=== PATIENT | male | born 1960 | race Caucasian/White ===

== ENCOUNTER 2019-05-20 09:28 | Observation (INO) | payer SELFPAY ==
[~2019-05-20] VITALS: Wt 78.3 kg
[2019-05-20 09:57] LABS: BASO % 0.5 % (0.0-2.0); GRAN # 5.8 (1.4-6.5); GRAN % 67.5 % (42.2-75.2); HEMATOCRIT 44.9 % (42.0-52.0); HEMOGLOBIN 15.4 g/dl (13.5-18.0); LYMPH % 23.1 % (20.0-51.0); MEAN CELL VOLUME 90 fl (80.0-100.0); MEAN CORPUSCULAR HEMOGLOBIN 31 pg (27.0-31.0); MEAN CORPUSCULAR HGB CONC 34 g/dl (33.0-37.0); MEAN PLATELET VOLUME 9.3 fl (7.4-10.4); MONO # 0.8 (0.1-0.6); MONO % 8.7 % (1.7-9.3); PLATELET COUNT 299 K/mm3 (130-400); RED BLOOD COUNT 4.99 M/mm3 (4.20-5.60); REDCELL DISTRIBUTION WIDTH-CV 12.9 % (11.5-14.5)
[2019-05-20 10:00] LABS: INR 0.9 (0.8-3.0); PROTHROMBIN TIME 10.7 SECONDS (9.7-12.8)
[2019-05-20 10:03] LABS: PARTIAL THROMBOPLASTIN TIME 34.9 SECONDS (26.0-37.0)
[2019-05-20 10:09] LABS: ALANINE AMINOTRANSFERASE 20 U/L (21-72); ALBUMIN 4.4 gm/dL (3.5-5.0); ALKALINE PHOSPHATASE 77 U/L (50-136); ANION GAP 8 mmol/L (7-16); AST,SGOT 27 U/L (15-37); BILIRUBIN,TOTAL 0.6 mg/dL (0.0-1.0); BLOOD UREA NITROGEN 15 mg/dL (9-20); CALCIUM 9.3 mg/dL (8.4-10.2); CARBON DIOXIDE 27 mmol/L (22-30); CHLORIDE 100 mmol/L (98-107); CREATININE, serum 0.69 (0.66-1.25); GLUCOSE 98 mg/dL (74-106); LIPASE 114 U/L (23-300); MAGNESIUM 1.9 mg/dL (1.6-2.3); POTASSIUM 4.2 mmol/L (3.4-5.0); SODIUM 135 mmol/L (137-145); TOTAL PROTEIN 7.2 gm/dL (6.4-8.2)
[2019-05-20 10:22] LABS: TROPONIN-I < 0.012 ng/mL (0.000-0.035)
[2019-05-20] MEDS ORDERED: VENLAFAXINE225 MG PO (10:22)
[2019-05-20] MEDS ORDERED: XANAX 0.5MG0.5 MG PO (10:22)
[2019-05-20] MEDS ORDERED: DESYREL 100MG100 MG PO (10:23)
[2019-05-20 11:08] LABS: COLLECTION METHOD CLEAN CATCH
[2019-05-20 11:18] LABS: PH 7 (5-8); SQUAMOUS EPITHELIAL None Seen /hpf; URINE APPEARANCE Clear; URINE BACTERIA None Seen /hpf; URINE BILIRUBIN Negative (NEGATIVE); URINE BLOOD Negative (NEGATIVE); URINE COLOR Yellow; URINE GLUCOSE Negative (NEGATIVE); URINE KETONE Negative (NEGATIVE); URINE LEUKOCYTE ESTERASE Negative (NEGATIVE); URINE NITRATE Negative (NEGATIVE); URINE PROTEIN(semi-quant) Negative (NEGATIVE); URINE RBC 0-2 /hpf; URINE UROBILINOGEN Negative (NEGATIVE)
[2019-05-20 14:59] LABS: TRICYCLIC ANTIDEPRESS URINE NEGATIVE
[2019-05-20 17:52] VITALS: BP 139/91; PULSE 63; TEMP 97.3
--- NOTE | 2019-05-20 19:00 | NUR ---
PT ADMITTED TO FLOOR THIS AFTERNOON. HAD ECHO, AND CAROTID COMPLETED SOON GETTING UP TO FLOOR. CT AND MRI COMPLETED SHORTLY AFTER. TO VOICED SEVERAL TIMES TO THIS NURSE THAT HE WANTED COFFEE AND THAT HE DRINKS ALOT OF CAFFINE ON A DAILY BASIS. ALSO INQUIRED ABOUT BAING ABLE TO SOME A CIGARETTE THIS EVENING. THIS NURSE OFFERED A NICOTINE PATCH PT STATED HE DIDNT THINK IT WOULD HELP AND I SAID THAT IT HE ISNT ABLE TO GO OUTSIDE TO SMOKE. REASSURED STAFFT ABOUT PT AND HIS REQUESTING TO SMOKE. PT TO HAVE STRESS TEST AND THAT HE WOULD BE NPO AT MIDNIGHT, AND AT SOME TIME THAT BEFORE TO LONG HE WOULD BE CUT OFF FROM [place] FOR THE STRESS TEST. PT VOICED UNDERSTANDING. PT FRIENDS HAD CAME INTO SEE HIM AT SUPPER TIME AND BROUGHT HIM MCDONALDS.
[2019-05-20 21:00] VITALS: BP 134/76; PULSE 70; TEMP 97.5
[2019-05-21 01:00] VITALS: BP 134/83; PULSE 63; TEMP 97.8
--- NOTE | 2019-05-21 03:12 | NUR ---
Patient has been resting well throughout the night. Denies needs. NPO since midnight. Education given on not drinking caffeine at beginning of shift d/t procedure in the morning. Will continue to monitor patient.
[2019-05-21 05:00] VITALS: BP 117/82; PULSE 67; TEMP 97.3
[2019-05-21 07:19] VITALS: BP 104/73; PULSE 69; TEMP 97.4
[2019-05-21 07:20] VITALS: BP 117/82; PULSE 67
[2019-05-21 07:44] LABS: BASO % 0.5 % (0.0-2.0); GRAN # 3.8 (1.4-6.5); HEMATOCRIT 43.7 % (42.0-52.0); LYMPH # 1.3 (1.2-3.4); LYMPH % 23.1 % (20.0-51.0); MEAN CELL VOLUME 90 fl (80.0-100.0); MEAN CORPUSCULAR HEMOGLOBIN 31 pg (27.0-31.0); MEAN CORPUSCULAR HGB CONC 34 g/dl (33.0-37.0); MEAN PLATELET VOLUME 9.4 fl (7.4-10.4); MONO # 0.5 (0.1-0.6); MONO % 9.2 % (1.7-9.3); PLATELET COUNT 236 K/mm3 (130-400); RED BLOOD COUNT 4.86 M/mm3 (4.20-5.60); REDCELL DISTRIBUTION WIDTH-CV 12.8 % (11.5-14.5)
[2019-05-21 07:59] LABS: CALCIUM 8.9 mg/dL (8.4-10.2); CHOLESTEROL RISK RATIO 3.6; CREATININE, serum 0.68 (0.66-1.25); POTASSIUM 3.9 mmol/L (3.4-5.0)
[2019-05-21] MEDS ORDERED: ASPIRIN 81M81 MG/TA2 PO (13:04)
--- NOTE | 2019-05-21 13:32 | NUR ---
DISCHARGE EDUCATION WENT OVER WITH PT. IV AND TELE REMOVED. PT STATED HE WAS GOING TO [facility] FOR LUNCH. PT HAD ALL HIS BELONGINGS AND A CUP OF COFFEE TAKING WITH HIM.
== END 2019-05-21 13:30 | disposition home or self-care (01) ==
LOC: COL.ER 09:28 → MEDICAL 12:09
PROVIDERS: Emergency Medicine; Physician Assistant; ADMIT Family Medicine
DX: R07.9 Chest pain, unspecified (principal); R53.1 Weakness; F41.9 Anxiety disorder, unspecified; F17.210 Nicotine dependence, cigarettes, uncomplicated; S22.31XK Fracture of one rib, right side, subsequent encounter for fracture with nonunion; Z79.82 Long term (current) use of aspirin; Z82.49 Family history of ischemic heart disease and other diseases of the circulatory system; Z88.6 Allergy status to analgesic agent; F32.9 Major depressive disorder, single episode, unspecified; I08.1 Rheumatic disorders of both mitral and tricuspid valves
CPT/HCPCS: A9500; A9585; G0378; J7030; Q9967